=== PATIENT | female | born 1980 | race Caucasian/White ===

== ENCOUNTER 2025-03-11 08:08 | Emergency (ER) | payer OTHER ==
[2025-03-11 08:28] VITALS: BP 152/94; PULSE 75; RESP 18; TEMP 98; BMI 30.9
[2025-03-11] MEDS ORDERED: METHOCARBAMOL 750 MG TAB PO ONE (09:22)
[2025-03-11] MEDS ORDERED: KETOROLAC TROMETHAMINE 30 MG/1 ML VIAL ONE (09:35)
[2025-03-11] MEDS ORDERED: LIDOCAINE 5% TOPICAL PATCH ONE (09:36)
[2025-03-11] MEDS ORDERED: METHOCARBAMOL 500 MG TABLET ONE (09:42)
[2025-03-11] MEDS: KETOROLAC TROMETHAMINE 30 MG/1 ML VIAL IM ONE (10:18)
[2025-03-11] MEDS: METHOCARBAMOL 500 MG TABLET PO ONE (10:19)
[2025-03-11] MEDS: LIDOCAINE 5% TOPICAL PATCH TP ONE (10:19)
[2025-03-11 10:26] LABS: URINE APPEARANCE CLEAR; URINE BILIRUBIN NEGATIVE (NEGATIVE); URINE COLOR YELLOW; URINE GLUCOSE (UA) NEGATIVE (NEGATIVE); URINE KETONE NEGATIVE (NEGATIVE); URINE LEUK ESTERASE NEGATIVE (NEGATIVE); URINE NITRITE NEGATIVE (NEGATIVE); URINE PROTEIN NEGATIVE (NEGATIVE); URINE UROBILINOGEN 0.2 mg/dL (0.2-1.0)
[2025-03-11] MEDS ORDERED: LIDOCAINE PATCH REMOVAL MC ONE (22:00)
== END 2025-03-11 12:57 | disposition home or self-care (01) ==
LOC: JERFT 08:08
PROC: 3E0233Z Introduction of Anti-inflammatory into Muscle, Percutaneous Approach (ICD-10-PCS; principal; 2025-03-11)
DX: M54.6 Pain in thoracic spine (principal); M54.50 Low back pain, unspecified
CPT/HCPCS: 72070-TC-FY; 72100-TC-FY; 81003; 87086; 87186; 99284-25